=== PATIENT | male | born 1995 | race Caucasian/White ===

== ENCOUNTER 2017-01-03 06:00 | Emergency (ER) | payer OTHER ==
[~2017-01-03] VITALS: Ht 175.3 cm; Wt 145.2 kg
[~2017-01-03 06:00] MED LIST: IBUPROFEN 600600 M1 PO; KEFLEX500 MG PO
[2017-01-03 06:46] VITALS: BP 133/83
== END 2017-01-03 06:47 | disposition home or self-care (01) ==
LOC: ER 06:00
DX: J02.8 Acute pharyngitis due to other specified organisms (principal); B97.89 Other viral agents as the cause of diseases classified elsewhere